=== PATIENT | male | born 1970 | race Caucasian/White ===

== ENCOUNTER 2024-08-23 21:17 | Emergency (ER) | payer BC, SELFPAY ==
[2024-08-23 21:20] VITALS: BP 150/83
[2024-08-23 21:46] LABS: Hematocrit 41.3 % (39.0-52.0); Hemoglobin 14.6 g/dL (13.0-18.0); Mean Corp Hgb Conc. 35.4 g/dL (33.0-37.0); Mean Corpuscular Volume 91.2 fL (80.0-94.0); Nucleated Red Blood Cells % 0 % (-); Platelet Count 214 10^3/uL (130-400); Red Cell Dist. Width 12.2 % (11.5-14.5)
[2024-08-23 22:08] LABS: ALT (SGPT) 26 U/L (0-50); AST (SGOT) 32 U/L (17-59); Albumin 4.6 g/dl (3.5-5.0); Alkaline Phosphatase 69 U/L (38-126); Blood Urea Nitrogen 13 mg/dl (9-20); Calcium 9.3 mg/dl (8.4-10.2); Carbon Dioxide 27 mmol/L (22-30); Chloride 104 mmol/L (98-107); Glucose 95 mg/dl (70-99); Potassium 3.6 mmol/L (3.5-5.1); Sodium 136 mmol/L (135-145); Total Protein 7.4 g/dl (6.3-8.2); eGFR > 60.00
[2024-08-24] MEDS: AUGMENTIN 875 MG/125 MG 1 TABLET PO (00:02)
[2024-08-24 00:04] VITALS: BP 138/89
--- NOTE | 2024-08-24 01:08 | ED.SKININJ ---
HPI-Injury
General
Chief Complaint: Ear Problem
Source: patient
Exam Limitations: none
Time Seen by Provider: 08/23/24 23:15
Nursing documentation reviewed up to this point in time: agreed with
History of Present Illness-Injury
Is this injury a work related problem?: No
Is pt an associate of [facility]?: No
Initial Injury comments:
Patient to ED with complaint of pain and swelling to right earlobe. Symptoms started 1 week ago with 'a pimple'. States he tried to squeeze it and since then it has become swollen. Denies fever/chills
Past History
Past History
ED Past Medical History: Arrthythmia and HTN
ED Past Surgical History: None
Social History
Personal:
Living: with family
Review of Systems
Review of Systems
Allergies reviewed?: Yes
All Other Systems: ROS reviewed and negative except as documented in HPI and ROS
Constitutional: Reports no symptoms
EENT: Reports no symptoms
Respiratory: Reports no symptoms
Cardiac: Reports no symptoms
ABD/GI: Reports no symptoms
: Reports no symptoms
Musculoskeletal: Reports no symptoms
Skin: Reports other (pain and swselling to right earlobe)
Neurological: Reports no symptoms
Psychiatric: Reports no symptoms
Phy Exam
General Physical Exam
General Presentation: well appearing and no apparent distress
General age: appears stated age
General Skin: warm and dry
General Habitus: normal
General Mental: alert
ENT Exam
ENT Exam: TM's normal and neck supple
Skin Exam
Skin Exam: warm/dry and other (mild erythema and swelling to right earlobe consistent with cellulitis. No evidence of abscess. No drainage. Keflex initiated in ED)
Psychiatric Exam
Psychiatric Exam: normal mood/affect
Course
Orders/Labs/Results
Orders:
Orders
08/23/24 21:25
Complete Blood Count/With Diff Urgent
Comprehensive Metabolic Panel Urgent
08/23/24 23:37
Amoxicillin 875 mg/Clav 125 mg [Augmentin 875 mg/125 mg] 1 tablet PO NOW STA
Abnormal Lab Results
08/23/24
21:25
RBC 4.53 L 10^6/uL
(4.70-6.10)
MCH 32.2 H pg
(27.0-31.0)
MPV 11.2 H fL
(7.4-10.4)
Absolute Monos (auto) 0.7 H 10^3/uL
(0.1-0.6)
Monocytes % 10.1 H %
(1.7-9.3)
08/23/24 21:25
08/23/24 21:25
Vital Signs
Initial and Last Documented VS:
Initial Vital Signs
Temp Pulse Resp BP Pulse Ox
98.6 F 61 18 150/83 100
08/23/24 21:20 08/23/24 21:20 08/23/24 21:20 08/23/24 21:20 08/23/24 21:20
Last Documented Vital Signs
Temp Pulse Resp BP Pulse Ox
98.6 F 56 20 138/89 100
08/23/24 21:20 08/24/24 00:04 08/24/24 00:04 08/24/24 00:04 08/24/24 01:10
*Pulse Oximetry
SaO2: 100
Patient hypoxic: no
*Critical Care Note
Total Time (30-74mins, 75-104mins- exclusive of procedures): Not Applicable
ED Attending Note
-
Portions of this chart may have been created with voice recognition software.� Occasional wrong word or��sound alike� substitutions may have occurred due to the inherent limitations of voice recognition software.
Discharge Plan
Departure
Patient Disposition: Home (Routine Discharge)
Date of Disposition: 08/23/24
Time of Disposition: 23:37
Patient with high blood pressure during this ER visit?: No
Condition: Good
Covid-19: Not Applicable
Discharge Problem:
Cellulitis of earlobe
Instructions: Cellulitis (skin infection) in adults - Discharge instructions
Prescriptions:
New
amoxicillin-pot clavulanate 875-125 mg tablet
1 tab PO BID Qty: 20 0RF
Activity Restrictions/Additional Instructions:
Warm compresses 15-20 minutes at a time, 4-5 times daily. Return to the emergency department immediately for any changes in/worsening of your symptoms.
Interventions
Interventions:
*Risk Screen - Suicide Last Done: 08/23/24 21:22
*General Assessment Last Done: 08/23/24 21:22
*Neglect/Abuse Screening Last Done: 08/23/24 21:22
*ED- Fall Risk Assessment Last Done: 08/23/24 23:18
*ED COVID-19 Vaccine History Last Done: 08/23/24 23:20
*Nursing Disposition Last Done: 08/24/24 00:11
Discharge Date and Time
Discharge Date/Time: 08/24/24 00:12
Print Language: TRISTANIAN
== END 2024-08-24 00:12 | disposition home or self-care (01) ==
LOC: EMR 21:17
PROVIDERS: Emergency Medicine; EMERGENCY PHYSICIAN Student in an Organized Health Care Education/Training Program; FAMILY PHYSICIAN Family Medicine
DX: H60.11 Cellulitis of right external ear (principal); I10 Essential (primary) hypertension
CPT/HCPCS: 99283; 80053; 85025